=== PATIENT | male | born 1980 | race Caucasian/White ===

== ENCOUNTER 2018-10-09 15:32 | Emergency (ER) | payer BC ==
[2018-10-09] MEDS ORDERED: NORMAL SALINE 1000 ML 1,000 ML IV ONE ×2 (15:56→18:58)
--- NOTE | 2018-10-09 15:58 | ER Document Report ---
ED Medical Screen (RME) - General Chief Complaint: Palpitations Stated Complaint: SHORT OF BREATH,NAUSEA Time Seen by Provider: 10/09/18 15:55 Mode of Arrival: Ambulatory Information source: Patient Notes: 38-year-old male presents the ED with a complaint of shortness of breath and heart racing. 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 He states that he started feeling very poorly yesterday afternoon and then he went home rested overnight and felt better this morning so he went to help finish the roof and became very short of breath and tachycardic. He thinks he is dehydrated. He states he is drinking a lot of fluids and tried to drink some Gatorade. He states he has ulcerative colitis and sometimes Gatorade gives him diarrhea which he did again today. He states that made him feel much worse and he became concerned because he was so tachycardic and short of breath. He states he is not having any chest pain at all he is just concerned. Patient is alert oriented respirations regular nonlabored and in no pain at this moment. I have greeted and performed a rapid initial assessment of this patient. A comprehensive ED assessment and evaluation of the patient, analysis of test results and completion of medical decision making process will be conducted by an additional ED providers. TRAVEL OUTSIDE OF THE [place] IN LAST 30 DAYS: No - Related Data Allergies/Adverse Reactions: No Known Allergies Allergy (Unverified 10/09/18 15:33) Past Medical History Renal/ Medical History: Denies: Hx Peritoneal Dialysis GI Medical History: Reports: Hx Gastroesophageal Reflux Disease Physical Exam - Vital signs Vitals: Temp Pulse Resp BP Pulse Ox 98.2 F 106 H 18 157/72 H 99 10/09/18 15:35 10/09/18 15:35 10/09/18 15:35 10/09/18 15:35 10/09/18 15:35 Course - Vital Signs Vital signs: Temp Pulse Resp BP Pulse Ox 98.2 F 106 H 18 157/72 H 99 10/09/18 15:35 10/09/18 15:35 10/09/18 15:35 10/09/18 15:35 10/09/18 15:35
--- NOTE | 2018-10-09 16:08 | EKG REPORT ---
SEVERITY:- OTHERWISE NORMAL ECG - SINUS TACHYCARDIA : Confirmed by: Fadi Fragoso MD 09-Oct-2018 16:07:52
[2018-10-09 16:20] LABS: ABSOLUTE BASOPHILS # (AUTO) 0.1 10^3/uL (0.0-0.2); ABSOLUTE EOSINOPHILS # (AUTO) 0.2 10^3/uL (0.0-0.6); ABSOLUTE LYMPHOCYTES (AUTO) 4.4 10^3/uL (0.5-4.7); ABSOLUTE NEUT (AUTO) 3.7 10^3/uL (1.7-8.2); BASOPHILS % (AUTO) 0.6 % (0-2); HEMATOCRIT 43.2 % (37.9-51.0); HEMOGLOBIN 15.2 g/dL (13.5-17.0); LYMPHOCYTES % (AUTO) 47.2 % (13-45); MEAN CORPUSCULAR HEMOGLOBIN 30.7 pg (27.0-33.4); MEAN CORPUSCULAR HGB CONC 35.3 g/dL (32.0-36.0); MEAN CORPUSCULAR VOLUME 87 fl (80-97); MONOCYTES % (AUTO) 10.8 % (3-13); PLATELET COUNT 325 10^3/uL (150-450); RED BLOOD COUNT 4.97 10^6/uL (4.35-5.55); RED CELL DISTRIBUTION WIDTH 13.7 % (11.5-14.0); SEGMENTED NEUTROPHILS % (AUTO) 39.4 % (42-78); TOTAL CELLS COUNTED % (AUTO) 100 %; WHITE BLOOD COUNT 9.4 10^3/uL (4.0-10.5)
[2018-10-09 16:21] LABS: APPEARANCE,URINE CLEAR; BILIRUBIN,URINE NEGATIVE (NEGATIVE); COLOR,URINE YELLOW; GLUCOSE, URINE NEGATIVE (NEGATIVE); KETONES,URINE NEGATIVE (NEGATIVE); LEUKOCYTE ESTERASE,URINE NEGATIVE (NEGATIVE); NITRITE,URINE NEGATIVE (NEGATIVE); PROTEIN,URINE NEGATIVE (NEGATIVE); URINE SPECIFIC GRAVITY 1.017; UROBILINOGEN,URINE NEGATIVE mg/dL (<2.0)
--- NOTE | 2018-10-09 16:29 | RADIOLOGY REPORT (SQ) ---
EXAM DESCRIPTION: CHEST 2 VIEWS COMPLETED DATE/TIME: 10/09/2018 4:15 pm REASON FOR STUDY: short of breath and tachycardia COMPARISON: None. EXAM PARAMETERS: NUMBER OF VIEWS: two views TECHNIQUE: Digital Frontal and Lateral radiographic views of the chest acquired. RADIATION DOSE: NA LIMITATIONS: none FINDINGS: LUNGS AND PLEURA: No opacities, masses or pneumothorax. No pleural effusion. MEDIASTINUM AND HILAR STRUCTURES: No masses or contour abnormalities. HEART AND VASCULAR STRUCTURES: Heart normal size. No evidence for failure. BONES: No acute findings. HARDWARE: None in the chest. OTHER: No other significant finding. IMPRESSION: No acute abnormality of the lungs. TECHNICAL DOCUMENTATION: JOB ID: [id number] [employer]- All Rights Reserved Reading location - IP/workstation name: [email or web address]
[2018-10-09 16:37] LABS: ALANINE AMINOTRANSFERASE 82 U/L (21-72); ALBUMIN 4.5 g/dL (3.5-5.0); ALKALINE PHOSPHATASE 62 U/L (38-126); ANION GAP 11 (5-19); ASPARTATE AMINO TRANSFERASE 48 U/L (17-59); BILIRUBIN,DIRECT 0.3 mg/dL (0.0-0.4); BILIRUBIN,TOTAL 0.7 mg/dL (0.2-1.3); BLOOD UREA NITROGEN 17 mg/dL (7-20); CALCIUM 9.7 mg/dL (8.4-10.2); CARBON DIOXIDE 30 mmol/L (22-30); CHLORIDE 98 mmol/L (98-107); GLUCOSE 90 mg/dL (75-110); POTASSIUM 3.4 mmol/L (3.6-5.0); SODIUM 138.6 mmol/L (137-145)
--- NOTE | 2018-10-09 20:14 | ER Document Report ---
ED General - General Chief Complaint: Palpitations Stated Complaint: SHORT OF BREATH,NAUSEA Time Seen by Provider: 10/09/18 15:55 Mode of Arrival: Ambulatory TRAVEL OUTSIDE OF THE [place] IN LAST 30 DAYS: No - HPI Patient complains to provider of: Shortness of breath palpitations Notes: Patient coming in for shortness of breath palpitations ongoing for approximate last 24 hours. Patient is currently from [place] stating that he is working doing work outside patient states he is currently on hypertensive medications doxycycline because of a tick bite he has history of ulcerative colitis and is on Remicade injections. States last injection was approximately 1 month ago. Patient otherwise denies any other symptoms denies any chest pain nausea vomiting fevers or chills. Patient upon my evaluation has received a liter of fluids and stay states feeling much better decreasing his palpitations. Patient denies any history of DVT PE in the past. - Related Data Allergies/Adverse Reactions: No Known Allergies Allergy (Unverified 10/09/18 15:33) Past Medical History - General Information source: Patient - Social History Smoking Status: Never Smoker Family History: None Patient has suicidal ideation: No Patient has homicidal ideation: No Renal/ Medical History: Denies: Hx Peritoneal Dialysis GI Medical History: Reports: Hx Gastroesophageal Reflux Disease Review of Systems - Review of Systems Constitutional: No symptoms reported EENT: No symptoms reported Cardiovascular: Palpitations Respiratory: Short of breath Gastrointestinal: No symptoms reported Genitourinary: No symptoms reported Male Genitourinary: No symptoms reported Musculoskeletal: No symptoms reported Skin: No symptoms reported Hematologic/Lymphatic: No symptoms reported Neurological/Psychological: No symptoms reported -: Yes All other systems reviewed and negative Physical Exam - Vital signs Vitals: Temp Pulse Resp BP Pulse Ox 98.2 F 106 H 18 157/72 H 99 10/09/18 15:35 10/09/18 15:35 10/09/18 15:35 10/09/18 15:35 10/09/18 15:35 Interpretation: Normal - General General appearance: Appears well, Alert - HEENT Head: Normocephalic, Atraumatic Eyes: Normal Pupils: PERRL - Respiratory Respiratory status: No respiratory distress Chest status: Nontender Breath sounds: Normal Chest palpation: Normal - Cardiovascular Rhythm: Regular Heart sounds: Normal auscultation Murmur: No - Abdominal Inspection: Normal Distension: No distension Bowel sounds: Normal Tenderness: Nontender Organomegaly: No organomegaly - Back Back: Normal, Nontender - Extremities General upper extremity: Normal inspection, Nontender, Normal color, Normal ROM, Normal temperature General lower extremity: Normal inspection, Nontender, Normal color, Normal ROM, Normal temperature, Normal weight bearing. No: Almas's sign - Neurological Neuro grossly intact: Yes Cognition: Normal Orientation: AAOx4 Phil[place] Coma Scale Eye Opening: Spontaneous Yemi Coma Scale Verbal: Oriented Philo Coma Scale Motor: Obeys Commands Yemi Coma Scale Total: 15 Speech: Normal Motor strength normal: LUE, RUE, LLE, RLE Sensory: Normal - Psychological Associated symptoms: Normal affect, Normal mood - Skin Skin Temperature: Warm Skin Moisture: Dry Skin Color: Normal Course - Re-evaluation Re-evalutation: 10/10/18 01:29 Laboratory studies show slight elevation patient's creatinine. Patient states he is never had any renal issues prior. Patient states he may have slightly got dehydrated while doing work outside. Patient is on losartan hydrochlorothiazide. Patient was received 2 bags of fluid in the recommend patient follow-up with his primary care physician in the next 1 to 2 weeks for repeat labs at this time do not see need to change the patient's blood pressure medication as is that his renal insult can be due to just dehydration. Is also further supported with a slightly elevated CK. The patient has palpitations as the patient's palpitations is not suggestive of pulmonary embolus, cardiac ischemia, aortic dissection, or other serious etiology. Given the extremely low risk of these diagnoses further testing and evaluation for these possibilities does not appear to be indicated at this time. The patient has been instructed to return if the symptoms worsen or change in any way. - Vital Signs Vital signs: Temp Pulse Resp BP Pulse Ox 98.2 F 106 H 16 150/86 H 95 10/09/18 15:35 10/09/18 15:35 10/09/18 20:01 10/09/18 20:01 10/09/18 20:01 - Laboratory Result Diagrams: 10/09/18 16:00 10/09/18 16:00 Laboratory results interpreted by me: 10/09/18 10/09/18 10/09/18 16:00 16:00 16:00 Seg Neutrophils % 39.4 L Lymphocytes % 47.2 H Potassium 3.4 L Creatinine 2.02 H Est GFR ( Amer) 45 L Est GFR (Non-Af Amer) 38 L ALT 82 H Creatine Kinase 799 H Discharge - Discharge Clinical Impression: Dehydration, Acute renal injury Condition: Stable Disposition: HOME, SELF-CARE Instructions: Dehydration ([facility]), Kidney Failure ([facility]) Additional Instructions: Your laboratory studies show slight elevation in your creatinine indication of a possible renal injury. I do believe this is due to dehydration. Your symptoms have improved with rehydration your heart rate has decreased with rehydration. I would highly recommend you follow-up with your primary care physician as that you are also on a blood pressure medication that can affect your kidneys for Remicade which can also affect her kidneys and doxycycline which can also affect her kidneys. More likely will need repeat laboratory studies in 1 to 2 weeks please make sure why you are outside to stay well-hydrated also please be aware that doxycycline will make you sensitive to the sunlight and that you can burn very easily. Return to the ER symptoms worsen.
[2018-10-09 20:19] VITALS: BP 150/86
== END 2018-10-09 20:29 | disposition home or self-care (01) ==
LOC: ER 15:32
DX: N17.9 Acute kidney failure, unspecified (principal); E86.0 Dehydration; R00.2 Palpitations; R06.02 Shortness of breath; R11.0 Nausea
CPT/HCPCS: 93005; 99285; 96360; 96361; 36415; 82550; 83735; 85025; 80053; 81001; 71046; 93010; J7030